=== PATIENT | female | born 1945 | race Caucasian/White ===

== ENCOUNTER 2020-05-14 17:18 | Emergency (ER) | payer MEDICARE, OTHER, SELFPAY ==
--- NOTE | ~2020-05-14 | XR_ITS ---
EXAMINATION: XR chest 1V portable EXAM DATE: 05/14/2020 18:10 INDICATION: cough, SOB, COVID exposure, H/O breast cancer. TECHNIQUE: Portable AP frontal chest x-ray was obtained. Comparison is made to prior examination from 03/14/2019. FINDINGS: The lungs are clear. There are no pleural effusions. The cardiomediastinal silhouette is within normal limits. There is no pneumothorax suspected. The bones and soft tissues are unremarkab le. IMPRESSION: No acute cardiopulmonary findings. Reviewed, dictated and finalized at location A. [employer]
[2020-05-14 17:36] VITALS: BP 155/69; PULSE 63; RESP 20; TEMP 38.4; O2SAT 96
--- NOTE | 2020-05-14 17:42 | ED.SOB ---
HPI - SOB/Dyspnea General Chief Complaint: Shortness of Breath/Dyspnea Stated Complaint: Exposure to Covid,Congestion,backpain,cough Time Seen by Provider: 05/14/20 17:42 Source: patient Mode of arrival: ambulatory Limitations: no limitations History of Present Illness HPI Narrative: 74-year-old woman comes to the emergency department complaining of fatigue and fever that started about 6 days ago. She has also had a nonproductive cough. Patient also states that she has had some chest pain with exertion over the last week. She denies prior similar symptoms. Her daughter was recently found positive with COVID. Patient states that she has no history of heart or lung disease nor does she have any history of smoking. The chest pain is only present with exertion And which resolves with rest. It is not provoked by taking a deep breath, palpation or movement. She denies nausea, worsened dyspnea, lightheadedness, sweatiness or weakness with the chest pain. her was diagnosed with COVID on May 09. MD elicited complaint: shortness of breath, cough and chest pain Onset (ago): day(s) () Context: occurred during exertion Timing: intermittent and progressively worsening Severity: moderate Exacerbating factors: exertion Relieving factors: rest Associated symptoms: chest pain, fever and cough Treatment prior to arrival: none Related Data Home oxygen amount: none Home Medications Medication Instructions Recorded Confirmed fenofibrate 160 mg tablet 160 mg PO DAILY 03/14/19 05/14/20 fluoxetine 40 mg capsule 40 mg PO DAILY 03/14/19 05/14/20 metoprolol tartrate 25 mg tablet 25 mg PO BID tablet 03/14/19 05/14/20 albuterol sulfate 90 mcg/actuation 1 puff INHALATION Q4H PRN 04/14/19 05/14/20 aerosol inhaler atorvastatin 20 mg tablet 20 mg PO DAILY 04/14/19 05/14/20 bupropion HCl 100 mg tablet 100 mg PO BID 04/14/19 05/14/20 cholecalciferol (vitamin D3) 25 1,000 unit PO DAILY 04/14/19 05/14/20 mcg (1,000 unit) capsule tamoxifen 20 mg PO DAILY 05/14/20 05/14/20 Allergies Allergy/AdvReac Type Severity Reaction Status Date / Time IVP dye Allergy Intermediate Swelling Uncoded 07/19/19 13:23 Review of Systems Constitutional: Constitutional: Denies chills, Reports fatigue and Reports fever(s) Eyes: Eyes: Denies change in vision and Denies photophobia ENT: Denies dysphagia, Denies nasal congestion and Denies sore throat Cardiovascular: Cardiovascular: Reports chest pain and Denies radiating jaw, neck or arm pain Respiratory: Respiratory: Denies chest congestion, Reports cough, Reports dyspnea and Denies wheezing Gastrointestinal: Gastrointestinal: Denies abdominal pain, Denies diarrhea, Denies nausea and Denies vomiting Musculoskeletal: Musculoskeletal: Reports back pain, Denies arthralgias and Denies joint swelling Integumentary/Breasts: Skin/Breast: Denies pruritus, Denies erythema and Denies rash Neurologic: Denies vertigo, Denies dizziness and Denies syncope Hematologic/Lymphatic: Hematologic/Lymphatic: Denies easy bleeding and Denies easy bruising Allergic/Immunologic: Allergic/Immunologic: Denies lip swelling and Denies throat swelling PMFSH Past Medical History Medical History Asthma Dementia Dementia Depression Diverticulitis Extrinsic asthma DAYANNA (generalized anxiety disorder) HTN (hypertension) Hx of breast cancer Hyperlipemia Hyperlipidemia Hypertension Major depression, recurrent Osteoporosis Osteoporosis Surgical History Surgical History History of hysterectomy History of partial mastectomy of right breast History of right mastectomy Hx of hysterectomy Family History Family History (System 07/19/19 @ 13:23 by Catina Healy) Mother Cervical cancer Mother Cervical cancer Social History Social History Smoking sta
--- NOTE | 2020-05-14 17:49 | ECG_ITS ---
Measurements Intervals [place] Rate: 67 P: -52 MD: 113 QRS: 14 QRSD: 84 T: 14 QT: 424 QTc: 448 Interpretive Statements ECTOPIC ATRIAL RHYTHM NONSPECIFIC T-WAVE ABNORMALITY- ANTEROLAT/INF LEADS BASELINE ARTIFACT- II, III, V4-V6 ABNORMAL ECG Electronically Signed On 05-14-2020 19:24:46 [employer] by Travis Mishra D.O.
[2020-05-14] MEDS: ASPIRIN 81 MG CHEWABLE TABLET 324 MG PO (18:10)
[2020-05-14 18:18] LABS: Influenza Control Valid (Valid); SARS-CoV-2 Ag Positive (Negative)
[2020-05-14 18:18] LABS: Basophils Absolute Auto 0.03 K/mm3 (0.00-0.10); Basophils Percent Auto 0.6 % (0.0-1.0); Eosinophils Absolute Auto 0.04 K/mm3 (0.02-0.50); Eosinophils Percent Auto 0.8 % (1.0-6.0); Hematocrit 37.8 % (35.0-42.0); Hemoglobin 13.1 g/dL (11.7-13.8); Immature Granulocyte Absolute 0.02 K/mm3 (0.00-0.00); Immature Granulocyte Percent A 0.4 % (0.0-0.0); Lymphocytes Absolute Auto 1.45 K/mm3 (1.10-4.50); Lymphocytes Percent Auto 29.6 % (18.0-42.0); Mean Corpuscular HGB Conc 34.7 g/dL (32.0-36.0); Mean Corpuscular Hemoglobin 30.5 pg (27.0-31.0); Mean Corpuscular Volume 88.1 fL (78.0-102.0); Mean Platelet Volume 10.5 fl (9.2-11.8); Monocytes Absolute Auto 0.73 K/mm3 (0.10-0.90); Monocytes Percent Auto 14.9 % (2.0-11.0); Neutrophils Absolute Auto 2.6 K/mm3 (1.7-7.2); Neutrophils Percent Auto 53.7 % (50.0-70.0); Platelet Count Result 186 K/mm3 (150-420); Red Blood Count 4.29 M/mm3 (4.20-5.40); Red Cell Distribution Width 12.7 % (11.6-14.4); White Blood Count 4.9 K/mm3 (4.8-10.8)
[2020-05-14 18:38] LABS: Alanine Aminotransferase 18 U/L (14-59); Albumin Level 3.8 g/dL (3.4-5.0); Alkaline Phosphatase 49 U/L (46-116); Anion Gap 11 mmol/L (8-16); Aspartate Amino Transferase 16 U/L (15-37); Bilirubin,Total 0.2 mg/dL (0.00-1.00); Blood Urea Nitrogen 24 mg/dL (7-18); Calcium 8.9 mg/dL (8.5-10.1); Carbon Dioxide 24 mmol/L (21-32); Chloride 100 mmol/L (98-108); Estimated CRCL calculation 37 ml/min; Estimated Glomerular Filt Rate 51; Glucose 129 mg/dL (70-99); Osmolality Calculated 286 mOsm/kg (285-295); Partial Thromboplastin Time 25.1 SEC (23.90-30.70); Potassium 3.9 mmol/L (3.5-5.1); Prothrombin Time 11.5 Seconds (9.50-12.10); Sodium 135 mmol/L (136-145); Total Protein 7.2 g/dL (6.4-8.2)
[2020-05-14 18:40] LABS: Troponin I 5.7 ng/L (0.00-60.4)
[2020-05-14 18:45] LABS: D Dimer 0.54 mg/L (0.19-0.50)
[2020-05-14] MEDS: ACETAMINOPHEN 500 MG TABLET 1000 MG PO (18:52)
[2020-05-14 18:57] VITALS: BP 160/74; PULSE 67; RESP 20; TEMP 38.1; O2SAT 95
[2020-05-14 19:05] VITALS: TEMP 38.1
== END 2020-05-14 19:05 | disposition home or self-care (01) ==
PROVIDERS: Emergency Provider Emergency Medicine; PCP Family Medicine
DX: U07.1 COVID-19 (principal); R07.9 Chest pain, unspecified; I10 Essential (primary) hypertension; E78.5 Hyperlipidemia, unspecified
CPT/HCPCS: 36415; 71045; 80053; 84484; 85025; 85380; 85610; 85730; 87426; 87804; 93005; 99283; 99284; A9270; C9803

== ENCOUNTER 2021-12-04 14:01 | Emergency (ER) | payer MEDICARE, OTHER, SELFPAY ==
--- NOTE | ~2021-12-04 | XR_ITS ---
EXAMINATION: XR hand LT min 3V INDICATION: Left hand pain TECHNIQUE: Three views of the left hand are obtained. COMPARISON: None available FINDINGS: There is no fracture, dislocation, or subluxation. There is moderate osteoarthritis of mult iple interphalangeal joints. The soft tissues are unremarkable. IMPRESSION: 1. 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 Reviewed, dictated and finalized at location L.
--- NOTE | ~2021-12-04 | XR_ITS ---
EXAMINATION: XR humerus LT DATE: 12/04/2021 15:13 INDICATION: Left humeral pain post fall TECHNIQUE: Internal and axillary rotated views of the left humerus were obtained. COMPARISON: None. FINDINGS: Alignment is normal. No fracture. Mild osteoarthritis at the left acromioclavicular joint. Left elbow joint spaces are relatively preserved with no joint effusion. Soft tissues are unremarkable. IMPRESSION: 1. Mild left acromioclavicular osteoarthritis. No acute osseous abnormality. Reviewed, dictated and finalized at location A.
--- NOTE | ~2021-12-04 | XR_ITS ---
XR forearm LT 2V 12/04/2021 15:13 Indication: Left arm pain Procedure: 2 views left forearm Comparison: No prior studies for comparison. Findings: No fracture, subluxation or dislocation. There is anatomic alignment of the left forearm. N o soft tissue abnormality. No foreign bodies. Impression: 1: No acute fracture. Reviewed, dictated and finalized at location A. Impression: 1: No acute fracture.
--- NOTE | 2021-12-04 14:20 | ED.FALL ---
HPI - Fall General Chief Complaint: Extremity Injury, Upper Stated Complaint: pain in L shoulder, arm and hand after fall Time Seen by Provider: 12/04/21 14:10 Source: patient and RN notes reviewed Mode of arrival: ambulatory Limitations: no limitations History of Present Illness HPI Narrative: patient states that she tripped over a box at home in her kitchen. She fell onto her left arm. Now having pain in her upper arm, forearm and hand on the left. She denies any head injury. complaint: fall Onset (ago): minute(s) (30) Fall from: standing Fall witnessed: no Place fall occurred: home Loss of consciousness: none Prolonged down time: no Symptoms prior to fall: none Context: tripped/slipped Location of injury - extremities: Left: arm and hand Severity: moderate Quality: dull and aching Associated symptoms (after fall): denies Related Data Home Medications Medication Instructions Recorded Confirmed fenofibrate 160 mg tablet 160 mg PO DAILY 03/14/19 05/14/20 fluoxetine 40 mg capsule (Prozac) 40 mg PO DAILY 03/14/19 05/14/20 metoprolol tartrate 25 mg tablet 25 mg PO BID 03/14/19 05/14/20 albuterol sulfate 90 mcg/actuation 1 puff inhalation Q4H PRN 04/14/19 05/14/20 aerosol inhaler (ProAir HFA) Shortness Of Breath bupropion HCl 100 mg tablet 100 mg PO BID 04/14/19 05/14/20 cholecalciferol (vitamin D3) 25 1,000 unit PO DAILY 04/14/19 05/14/20 mcg (1,000 unit) capsule tamoxifen 20 mg tablet 20 mg PO DAILY 05/14/20 05/14/20 amlodipine 10 mg tablet 10 mg PO DAILY 12/04/21 12/04/21 icosapent ethyl 1 gram capsule 1 g PO BID 12/04/21 12/04/21 venlafaxine 75 mg tablet 75 mg PO DAILY 12/04/21 12/04/21 Allergies Allergy/AdvReac Type Severity Reaction Status Date / Time IVP dye Allergy Intermediate Swelling Uncoded 12/04/21 14:49 Review of Systems Review of Systems: All systems reviewed & are unremarkable except as noted in HPI and below PMFSH Past Medical History Medical History Asthma Dementia Dementia Depression Diverticulitis Extrinsic asthma DAYANNA (generalized anxiety disorder) HTN (hypertension) Hx of breast cancer Hyperlipemia Hyperlipidemia Hypertension Major depression, recurrent Osteoporosis Osteoporosis Surgical History Surgical History History of hysterectomy History of partial mastectomy of right breast History of right mastectomy Hx of hysterectomy Family History Family History (System 07/19/19 @ 13:23 by Catina Healy) Mother Cervical cancer Mother Cervical cancer Social History Social History Smoking status: Never smoker Substance use: never Additional living arrangements comments: . 6 Children. 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 Exam Const: General: healthy appearing, no acute distress and alert Nutritional Appearance: well nourished Orientation/consciousness: patient oriented x3 Limitations: no limitations HENMT: Head: normal to inspection Eyes: Conjunctivae: conjunctivae normal Pupils: Equal, round and reactive pupils present EOM: EOMs intact bilaterally Neck: Neck: normal visual inspection Resp: Effort & Inspection: normal respiratory effort Auscultation: clear to auscultation bilaterally Cardio: Rate: regular rate Rhythm: regular rhythm GI: GI Palp: Yes Soft to palpation and No Tenderness to palpation present (GI) Auscultation: normal bowel sounds Back/Spine/Pelvis: Cervical Spine: cervical ROM normal Thoracic/Lumbar Spine: thoraco-lumbar ROM normal Skin: General skin exam: normal color Rashes: no rashes Neuro: General: patient oriented x3, moves all extremities, no focal motor deficits and CN's II-XI intact bilaterally Speech: normal speech Gait exam (Neuro): Normal gait present Extrem: General: normal exam e
[2021-12-04 14:37] VITALS: BP 162/74; PULSE 69; RESP 20; TEMP 36.6; O2SAT 99
[2021-12-04 15:50] VITALS: BP 150/72; PULSE 70; RESP 20; TEMP 36.7; O2SAT 99
== END 2021-12-04 15:50 | disposition home or self-care (01) ==
PROVIDERS: Emergency Provider Emergency Medicine; PCP Nurse Practitioner Family
DX: S40.022A Contusion of left upper arm, initial encounter (principal); S50.12XA Contusion of left forearm, initial encounter; S60.222A Contusion of left hand, initial encounter; W01.0XXA Fall on same level from slipping, tripping and stumbling without subsequent striking against object, initial encounter
CPT/HCPCS: 73060; 73090; 73130; 99284

== ENCOUNTER 2024-12-17 10:50 | Emergency (ER) | payer MEDICARE, OTHER, SELFPAY ==
--- NOTE | 2024-12-17 10:54 | ED.EAR ---
HPI - Ear Problem General Chief complaint: Ear Stated complaint: foreign object in ear Time Seen by Provider: 12/17/24 10:54 Source: patient Mode of arrival: ambulatory Limitations: no limitations History of Present Illness HPI Narrative: Patient is a 79-year-old female with her hearing aid plastic and pieces stuck in both canals on either side. They attempted to remove at home but unable to get them out of the canal. Mild pain associated of the ears. MD Complaint: foreign body ( Bilateral ear canal) Location: bilateral Duration: constant Severity: mild Relieving factors: nothing Exacerbating factors: nothing Context: Reports other ( patient got her hearing aid rubber tip ends stuck in both canals) Discharge from ear: Reports no Associated symptoms ear: other ( none) Treatment prior to arrival: none Related Data Home Medications ?Medication ?Instructions ?Recorded ?Confirmed ?Last Taken ?Type fenofibrate 160 mg tablet 160 mg PO DAILY 03/14/19 12/04/21 Unknown History fluoxetine 40 mg capsule (Prozac) 40 mg PO DAILY 03/14/19 12/04/21 Unknown History metoprolol tartrate 25 mg tablet 25 mg PO BID 03/14/19 12/04/21 Unknown History albuterol sulfate 90 mcg/actuation 1 puff inhalation Q4H PRN 04/14/19 12/04/21 Unknown History aerosol inhaler (ProAir HFA) Shortness Of Breath bupropion HCl 100 mg tablet 100 mg PO BID 04/14/19 12/04/21 Unknown History cholecalciferol (vitamin D3) 25 1,000 unit PO DAILY 04/14/19 12/04/21 Unknown History mcg (1,000 unit) capsule tamoxifen 20 mg tablet 20 mg PO DAILY 05/14/20 12/04/21 Unknown History amlodipine 10 mg tablet 10 mg PO DAILY 12/04/21 12/04/21 Unknown History icosapent ethyl 1 gram capsule 1 g PO BID 12/04/21 12/04/21 Unknown History venlafaxine 75 mg tablet 75 mg PO DAILY 12/04/21 12/04/21 Unknown History Allergies Allergy/AdvReac Type Severity Reaction Status Date / Time IVP dye Allergy Intermediate Swelling Uncoded 12/17/24 11:08 Review of Systems Review of Systems: All systems reviewed & are unremarkable except as noted in HPI and below Constitutional: Constitutional: Reports no additional constitutional complaints Eyes: Eyes: Reports no additional eye complaints ENT: Reports system reviewed and no additional complaints, except as documented Cardiovascular: Cardiovascular: Reports no additional cardiovascular complaints Respiratory: Respiratory: Reports no additional respiratory complaints Gastrointestinal: Gastrointestinal: Reports no additional gastrointestinal complaints Genitourinary: Genitourinary: Reports no additional female genitourinary complaints Musculoskeletal: Musculoskeletal: Reports no additional musculoskeletal complaints Integumentary/Breasts: Skin/Breast: Reports system reviewed and no additional complaints, except as docu Neurologic: Reports system reviewed and no additional complaints, except as documented Psychiatric: Psychiatric: Reports no additional psychiatric complaints Endocrine: Endocrine: Reports no additional endocrine complaints Hematologic/Lymphatic: Hematologic/Lymphatic: Reports no additional hematologic/lymphatic complaints Allergic/Immunologic: Allergic/Immunologic: Reports no additional allergic/immunologic complaints PMFSH Past Medical History Medical History Major depression, recurrent Hx of breast cancer Osteoporosis HTN (hypertension) Hyperlipemia DAYANNA (generalized anxiety disorder) Extrinsic asthma Diverticulitis Dementia Osteoporosis Hypertension Hyperlipidemia Asthma Depression Dementia Surgical History Surgical History History of partial mastectomy of right breast Hx of hysterectomy History of right mastectomy History of hysterectomy Family History Family History Mother Cervical cancer Mother Cervical cancer Social History Social History Smoking status: Never smoker Substance use: never Living arrangements: with family Additional living arrangements comments: . 6 Children. 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 Exam Const: General: healthy appearing Nutritional Appearance: well nourished Orientation/consciousness: patient oriented x3 HENMT: Head: normal to inspection Ears: external ears normal Face/Nose/Sinus: Normal external nose present Other: bilateral ears have rubber pieces from the hearing aids stuck residential in the canals with localized erythema and irritation and tenderness to the auditory canal Eyes: Conjunctivae: conjunctivae normal Pupils: Equal, round and reactive pupils present EOM: EOMs intact bilaterally Neck: Neck: normal visual inspection Chest: Chest palpation & inspection: normal inspection of the chest Resp: Effort & Inspection: normal respiratory effort and not labored Auscultation: clear to auscultation bilaterally and no crackles Cardio: Rate: regular rate Rhythm: regular rhythm Heart sounds: no murmurs GI: Inspection: non-distended Auscultation: normal bowel sounds and bowel sounds present : General: Yes bladder normal to palpation Back/Spine/Pelvis: Back: no CVA tenderness Skin: General skin exam: normal color Rashes: no rashes Wounds: no wounds Neuro: General: patient oriented x3, moves all extremities and no meningeal signs Extrem: General: normal to inspection, no clubbing, cyanosis or edema and no pedal edema Psych: Mental Status: mental status grossly normal Affect: normal affect Attitude: cooperative Procedures Other Procedure Procedure 1: Other Procedure: bilateral ear foreign body a rubber pieces of hearing aids: Alligator forceps used to remove each side of the ear of the head in total; both pieces were removed without difficulty; no further foreign bodies seen; antibiotic drops for the flames an infected canals; patient tolerated procedure well and no complications Medical Decision Making MDM Narrative Medical decision making narrative: patient is a 79-year-old female with bilateral ear foreign body of rubber ends of the hearing aid stuck in the canals. I will remove the foreign bodies. We will do Cortisporin for irritated auditory canal chery. Discharge Plan Discharge Clinical Impression: Ear foreign body Qualifiers: Encounter type: initial encounter Laterality: unspecified laterality Qualified Code(s): T16.9XXA - Foreign body in ear, unspecified ear, initial encounter Patient Disposition: Home Condition: Stable Instructions: Antibiotic Form, Ear Foreign Body (ED) Patient Language: French Prescriptions: New ctawrqum-[id number]-XB 3.5-10,000-1 mg/mL-unit/mL-% drops,suspension 3 drp EACH EAR TID 7 Days Qty: 10 0RF No Action tamoxifen 20 mg tablet 20 mg PO DAILY venlafaxine 75 mg tablet 75 mg PO DAILY amlodipine 10 mg tablet 10 mg PO DAILY icosapent ethyl 1 gram Capsule 1 g PO BID bupropion HCl 100 mg tablet 100 mg PO BID albuterol sulfate [ProAir HFA] 90 mcg/actuation HFA aerosol inhaler 1 puff INHALATION Q4H PRN (Reason: Shortness Of Breath) cholecalciferol (vitamin D3) 1,000 unit capsule 1,000 unit PO DAILY fenofibrate 160 mg tablet 160 mg PO DAILY metoprolol tartrate 25 mg tablet 25 mg PO BID fluoxetine [Prozac] 40 mg capsule 40 mg PO DAILY Follow-up/Referrals: Rogerio Villarreal DO [Primary Care Provider] - Time of Disposition: 11:11
== END 2024-12-17 11:20 | disposition home or self-care (01) ==
LOC: CHSED 11:17
PROVIDERS: Emergency Provider Emergency Medicine; PCP Family Medicine
DX: T16.2XXA Foreign body in left ear, initial encounter (principal); T16.1XXA Foreign body in right ear, initial encounter; I10 Essential (primary) hypertension; E78.5 Hyperlipidemia, unspecified; F03.90 Unspecified dementia, unspecified severity, without behavioral disturbance, psychotic disturbance, mood disturbance, and anxiety; Z85.3 Personal history of malignant neoplasm of breast; W44.G1XA Audio device entering into or through a natural orifice, initial encounter
CPT/HCPCS: 99283

== ENCOUNTER 2025-02-26 10:19 | Emergency (ER) | payer MEDICARE, OTHER, SELFPAY ==
[2025-02-26 10:21] VITALS: BP 176/82; PULSE 65; RESP 16; TEMP 36.7; O2SAT 98
--- NOTE | 2025-02-26 10:37 | ED.GENADULT ---
HPI - General Adult General Chief complaint: Eye Problems Stated complaint: redness around left eye Time Seen by Provider: 02/26/25 10:37 Source: patient Mode of arrival: ambulatory Limitations: no limitations History of Present Illness HPI narrative: The patient is a 79-year-old woman with history of hypertension, hyperlipidemia, anxiety disorder, osteoporosis, asthma. Last year, after cutting corn outside her house, the patient developed irritability of the skin around 1 of her eyes, treated with oral medications with relief. She now presents with similar symptoms: For the last week, the patient has had hyperemia around the skin of the left eye, with an itching sensation of the eye and a burning sensation. She has no increased tearing or mucus production from the left eye. She does have injection of her conjunctiva in the left eye. She has no hives. No wheezing. No swelling of the tongue or lips. No other manifestations of an allergic reaction. No trauma to the eye. No visual changes. Related Data Home Medications ?Medication ?Instructions ?Recorded ?Confirmed ?Last Taken ?Type fenofibrate 160 mg tablet 160 mg PO DAILY 03/14/19 12/04/21 Unknown History fluoxetine 40 mg capsule (Prozac) 40 mg PO DAILY 03/14/19 12/04/21 Unknown History metoprolol tartrate 25 mg tablet 25 mg PO BID 03/14/19 12/04/21 Unknown History albuterol sulfate 90 mcg/actuation 1 puff inhalation Q4H PRN 04/14/19 12/04/21 Unknown History aerosol inhaler (ProAir HFA) Shortness Of Breath bupropion HCl 100 mg tablet 100 mg PO BID 04/14/19 12/04/21 Unknown History cholecalciferol (vitamin D3) 25 1,000 unit PO DAILY 04/14/19 12/04/21 Unknown History mcg (1,000 unit) capsule tamoxifen 20 mg tablet 20 mg PO DAILY 05/14/20 12/04/21 Unknown History amlodipine 10 mg tablet 10 mg PO DAILY 12/04/21 12/04/21 Unknown History icosapent ethyl 1 gram capsule 1 g PO BID 12/04/21 12/04/21 Unknown History venlafaxine 75 mg tablet 75 mg PO DAILY 12/04/21 12/04/21 Unknown History Allergies Allergy/AdvReac Type Severity Reaction Status Date / Time IVP dye Allergy Intermediate Swelling Uncoded 12/17/24 11:08 Review of Systems Review of Systems: All systems reviewed & are unremarkable except as noted in HPI and below Constitutional: Constitutional: Denies chills, Denies excessive sweating, Denies fatigue, Denies fever(s), Denies headache(s) and Denies weakness Eyes: Eyes: Reports as per HPI, Denies change in vision and Denies photophobia ENT: Denies dysphagia, Denies dizziness, Denies headache(s), Denies lip swelling, Denies nasal congestion, Denies sore throat and Denies tongue swelling Cardiovascular: Cardiovascular: Denies chest pain, Denies syncope, Denies rapid heart rate and Denies dyspnea Respiratory: Respiratory: Denies cough, Denies dyspnea and Denies wheezing Gastrointestinal: Gastrointestinal: Denies abdominal pain, Denies constipation, Denies dysphagia, Denies diarrhea, Denies nausea and Denies vomiting Genitourinary: Genitourinary: Denies hematuria, Denies urinary frequency, Denies dysuria and Denies urinary urgency Musculoskeletal: Musculoskeletal: Denies back pain, Denies myalgias, Denies arthralgias, Denies joint swelling and Denies numbness Integumentary/Breasts: Skin/Breast: Denies pruritus, Denies erythema and Denies rash Neurologic: Denies confusion, Denies dizziness, Denies syncope, Denies headache(s), Denies focal weakness, Denies numbness and Denies weakness Psychiatric: Psychiatric: Denies anxiety and Denies confusion Endocrine: Endocrine: Denies excessive sweating and Denies fatigue Hematologic/Lymphatic: Hematologic/Lymphatic: Denies easy bleeding and Denies easy bruising Allergic/Immunologic: Allergic/Immunologic: Denies lip swelling, Denies tongue swelling and Denies wheezing PMFSH Past Medical History Medical History Major depression, recurrent Hx of breast cancer Osteoporosis HTN (hypertension) Hyperlipemia DAYANNA (generalized anxiety disorder) Extrinsic asthma Diverticulitis Dementia Osteoporosis Hypertension Hyperlipidemia Asthma Depression Dementia Surgical History Surgical History History of partial mastectomy of right breast Hx of hysterectomy History of right mastectomy History of hysterectomy Family History Family History Mother Cervical cancer Mother Cervical cancer Social History Social History Smoking status: Never smoker Substance use: never Living arrangements: with family Additional living arrangements comments: . 6 Children. 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 Exam Const: General: healthy appearing, no acute distress, alert and well nourished Nutritional Appearance: well nourished Orientation/consciousness: patient oriented x3 Limitations: no limitations HENMT: Head: normal to inspection Ears: external ears normal Face/Nose/Sinus: normal facial exam Face and sinus: normal facial exam Mouth: Yes moist mucous membranes Throat: posterior oropharynx normal Eyes: Conjunctivae: conjunctivae normal (on right) and conjunctival abnormality (with conjunctival injection) left Pupils: Equal, round and reactive pupils present EOM: EOMs intact bilaterally Other: Left periorbital hyperemia with mild swelling of the skin around the left eye. Moderate left conjunctival injection. PERRL, EOMI. No entrapment. Neck: Neck: normal visual inspection and no meningeal signs Chest: Chest palpation & inspection: normal inspection of the chest and no tenderness Resp: Effort & Inspection: normal respiratory effort and not labored Auscultation: clear to auscultation bilaterally, no crackles, no rhonchi and no wheezes Cardio: Rate: regular rate Rhythm: regular rhythm Heart sounds: no murmurs GI: Inspection: non-distended GI Palp: Yes Soft to palpation, No Tenderness to palpation present (GI), No Guarding due to palpation present (GI) and No Rebound tenderness present : General: Yes no CVA tenderness Back/Spine/Pelvis: Back: no CVA tenderness Cervical Spine: No Cervical spine tenderness Thoracic/Lumbar Spine: No thoracic spinal tenderness Skin: General skin exam: normal color Rashes: no rashes Wounds: no wounds Neuro: General: patient oriented x3, moves all extremities, no meningeal signs, no focal motor deficits and CN's II-XI intact bilaterally Cranial nerves: Yes Equal, round and reactive pupils present Speech: normal speech Motor exam (neuro): 5/5 motor strength present throughout Sensory Exam: normal sensation Extrem: General: normal to inspection and no clubbing, cyanosis or edema Psych: Mental Status: mental status grossly normal Affect: normal affect Course Course Emergency Course: Itching to both burning and a double injection of the left eye, with surrounding mild swelling and hyperemia consistent with an allergic reaction. She attributes this to the corn being cut outside of her house. She had a similar reaction last year treated with medications orally. She received a dose of loratadine 20 mg, hydroxyzine 25 mg, and dexamethasone 10 mg in the ER. She was placed on a Medrol Dosepak, loratadine for 2 weeks 10 mg daily, and hydroxyzine as needed for itching. She is agreeable with the plan. All questions answered. Vital Signs Vital signs: Vital Signs Temperature 36.7 C 02/26/25 10:21 Pulse Rate 65 02/26/25 10:21 Respiratory Rate 16 02/26/25 10:21 Blood Pressure 176/82 H 02/26/25 10:21 Pulse Oximetry 98 02/26/25 10:21 Oxygen Delivery Room Air 02/26/25 10:21 Temperature 36.7 C 02/26/25 10:21 Pulse Rate 65 02/26/25 10:21 Respiratory Rate 16 02/26/25 10:21 Blood Pressure 176/82 H 02/26/25 10:21 Pulse Oximetry 98 02/26/25 10:21 Oxygen Delivery Room Air 02/26/25 10:21 Medical Decision Making Vital Signs Vital Signs: Vital Signs Temperature 36.7 C 02/26/25 10:21 Pulse Rate 65 02/26/25 10:21 Respiratory Rate 16 02/26/25 10:21 Blood Pressure 176/82 H 02/26/25 10:21 Pulse Oximetry 98 02/26/25 10:21 Oxygen Delivery Room Air 02/26/25 10:21 Temperature 36.7 C 02/26/25 10:21 Pulse Rate 65 02/26/25 10:21 Respiratory Rate 16 02/26/25 10:21 Blood Pressure 176/82 H 02/26/25 10:21 Pulse Oximetry 98 02/26/25 10:21 Oxygen Delivery Room Air 02/26/25 10:21 Discharge Plan Discharge Clinical Impression: Allergic eye reaction Patient Disposition: Home Condition: Stable Additional Instructions: You are experiencing an allergic reaction, as manifested by the redness to your left eye, itching, burning, and surrounding skin swelling and irritation and redness. We will start you on steroids, a 1st dose was given to you today in the emergency room. Start the steroids tomorrow, Medrol Dosepak, for the next several days. Start hydroxyzine as needed for the itching Start loratadine to help with the allergic reaction symptoms for the next 2 weeks, once daily Follow-up with your primary care provider in the next 3-5 days for re-evaluation to ensure improvement Return if worse Patient Language: Albanian Prescriptions: New methylprednisolone [Medrol (Boni)] 4 mg tablets,dose pack See Rx Instructions .ROUTE .COMPLEX Qty: 21 0RF Rx Instructions: for 6 days. start 02/27/2025. hydroxyzine HCl 25 mg tablet 25 mg PO QID PRN (Reason: itching) Qty: 30 0RF Allergy Relief (loratadine) 10 mg capsule 10 mg PO DAILY Qty: 14 0RF Rx Instructions: start 02/27/2025 No Action tamoxifen 20 mg tablet 20 mg PO DAILY venlafaxine 75 mg tablet 75 mg PO DAILY amlodipine 10 mg tablet 10 mg PO DAILY icosapent ethyl 1 gram Capsule 1 g PO BID [id number] 3.5-10,000-1 mg/mL-unit/mL-% drops,suspension 3 drp EACH EAR TID 7 Days Qty: 10 0RF bupropion HCl 100 mg tablet 100 mg PO BID albuterol sulfate [ProAir HFA] 90 mcg/actuation HFA aerosol inhaler 1 puff INHALATION Q4H PRN (Reason: Shortness Of Breath) cholecalciferol (vitamin D3) 1,000 unit capsule 1,000 unit PO DAILY fenofibrate 160 mg tablet 160 mg PO DAILY metoprolol tartrate 25 mg tablet 25 mg PO BID fluoxetine [Prozac] 40 mg capsule 40 mg PO DAILY Follow-up/Referrals: UNKNOWN,DOCTOR [Non-Staff] - 1 Week Referral Note: Allergic eye reaction, treated with loratadine, Medrol Dosepak, and hydroxyzine as needed. Clinical Impression: Allergic eye reaction Time of Disposition: 10:55
[2025-02-26] MEDS: LORATADINE 10 MG TABLET 20 MG PO (10:51)
== END 2025-02-26 11:12 | disposition home or self-care (01) ==
PROVIDERS: Emergency Provider Emergency Medicine
DX: H57.89 Other specified disorders of eye and adnexa (principal); T50.905A Adverse effect of unspecified drugs, medicaments and biological substances, initial encounter; I10 Essential (primary) hypertension; E78.5 Hyperlipidemia, unspecified; F03.90 Unspecified dementia, unspecified severity, without behavioral disturbance, psychotic disturbance, mood disturbance, and anxiety; Z85.3 Personal history of malignant neoplasm of breast
CPT/HCPCS: 99283; A9270; J8540